=== PATIENT | male | born 1975 | race Caucasian/White ===

== ENCOUNTER 2022-06-20 20:55 | Emergency (ER) | payer BC, OTHER ==
[~2022-06-20] VITALS: Ht 188 cm; Wt 81.6 kg
[2022-06-20 21:00] VITALS: BP_SYST 132
[2022-06-21] MEDS ORDERED: NAPR-688 PO (00:17)
[2022-06-21 00:45] VITALS: BP_SYST 130
== END 2022-06-21 00:45 | disposition home or self-care (01) ==
LOC: SED 22:05
DX: M25.562 Pain in left knee (principal); Z79.899 Other long term (current) drug therapy
CPT/HCPCS: 73564; 99283